=== PATIENT | male | born 1955 | race Caucasian/White ===

== ENCOUNTER 2016-05-26 13:13 | Emergency (ER) | payer OTHER, BC ==
--- NOTE | 2016-05-26 13:21 | ER Document Report ---
ED Medical Screen (RME) - General Chief Complaint: Knee Pain Stated Complaint: KNEE PAIN Time seen by provider: 13:29 Mode of Arrival: Medic Information source: Patient, Emergency Med Personnel Notes: 60-year-old male presents to ED according to EMS for knee pain. States he has chronic knee pain it pops in and out usually is about the back today it did not pop back in. Patient states he stood up from sitting down when his knee popped out. States usually he can get it to pop back in but this time it did about an hour ago. States he think he he got it part of the way back and but not all the way. I have greeted and performed a rapid initial assessment of this patient. A comprehensive ED assessment and evaluation of the patient, analysis of test results and completion of medical decision making process will be conducted by an additional ED providers. - Related Data Allergies/Adverse Reactions: No Known Allergies Allergy (Verified 10/19/11 20:50) Past Medical History Past Surgical History: Reports: Hx Orthopedic Surgery - knee - Immunizations Hx Diphtheria, Pertussis, Tetanus Vaccination: Yes
[2016-05-26] MEDS ORDERED: ACETAMINOPHEN 325 MG TABLET PO ONE (13:32)
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
[2016-05-26 18:27] VITALS: BP 141/82
== END 2016-05-26 17:30 | disposition home or self-care (01) ==
LOC: ER 13:13
DX: M24.461 Recurrent dislocation, right knee (principal); Z98.890 Other specified postprocedural states; I10 Essential (primary) hypertension
CPT/HCPCS: 99284